=== PATIENT | female | born 1930 | race Caucasian/White ===

== ENCOUNTER 2016-10-16 17:10 | Inpatient (IN) | payer MEDICARE, MEDICAID ==
[~2016-10-16] VITALS: Ht 170.2 cm; Wt 108.0 kg
[~2016-10-16 17:10] MED LIST: KETAMINE INJ 50 MG/ML VIAL IV ONE; LIDOCAINE 2% SYR 5 ML IV ONE; PROPOFOL 50ML VIAL IV ONE
[2016-10-16] MEDS ORDERED: SALINE FLUSH 10 ML FLUSH PRN (20:15)
[2016-10-16] MEDS ORDERED: DEXTROSE 50% SYRINGE 50 ML IV PRN (20:15)
[2016-10-16] MEDS ORDERED: PHARMACY TO DOSE LEVAQUIN IV SCH (20:15)
[2016-10-16] MEDS ORDERED: GLUCAGON 1 MG VIAL IM PRN (20:15)
[2016-10-16] MEDS ORDERED: ONDANSETRON 4 MG VIAL IV PRN (20:15)
[2016-10-16] MEDS ORDERED: PHARMACY TO DOSE ZOSYN IV SCH (20:25)
[2016-10-16 21:23] VITALS: BP_SYST 153; RESP 18; TEMP 98.6
[2016-10-16 21:25] VITALS: Ht 170.2 cm; Wt 108.0 kg
[2016-10-16] MEDS: SODIUM CHLORIDE 0.9% 1,000 ML IV SCH (22:05)
[2016-10-16] MEDS: SALINE FLUSH 10 ML FLUSH SCH (22:06)
[2016-10-16 23:15] VITALS: BP_SYST 139; RESP 18; TEMP 98.2
[2016-10-16] MEDS: PIPERACIL/TAZO 2.25GM/50ML 50 ML IV SCH (23:35)
[2016-10-17] VITALS (15 sets, daily range): BP systolic 110–163; RESP 16–20; TEMP 96.6–98.3
[2016-10-17] MEDS: SODIUM CHLORIDE 0.9% FLUSH BAG 500 ML IV SCH ×2 (05:23→23:45)
[2016-10-17] MEDS: LEVOTHYROXINE 0.025 MG TAB PO SCH (06:08)
[2016-10-17] MEDS: PIPERACIL/TAZO 2.25GM/50ML 50 ML IV SCH ×3 (06:09→17:56)
[2016-10-17] MEDS: SODIUM CHLORIDE 0.9% 1,000 ML IV SCH ×2 (06:09→19:58)
[2016-10-17] MEDS ORDERED: [UNRECOGNIZED DRUG - REMARK] XX SCH (08:00)
[2016-10-17] MEDS: SALINE FLUSH 10 ML FLUSH SCH ×2 (08:00→19:58)
[2016-10-17] MEDS: BUPROPION SR 100 MG TAB PO SCH (09:00)
[2016-10-17] MEDS: DULoxetine 30 MG CAP PO SCH (09:00)
[2016-10-17] MEDS ORDERED: LACT RINGERS 1,000 ML IV SCH (11:45)
[2016-10-18 00:17] VITALS: BP_SYST 105; RESP 18; TEMP 97.6
[2016-10-18] MEDS: PIPERACIL/TAZO 2.25GM/50ML 50 ML IV SCH ×4 (00:20→16:39)
[2016-10-18 04:11] VITALS: BP_SYST 116; RESP 18; TEMP 97.4
[2016-10-18] MEDS: LEVOTHYROXINE 0.025 MG TAB PO SCH (06:10)
[2016-10-18] MEDS: SODIUM CHLORIDE 0.9% 1,000 ML IV SCH ×3 (06:11→22:34)
[2016-10-18 07:11] VITALS: BP_SYST 120; RESP 18; TEMP 97.9
[2016-10-18] MEDS: BUPROPION SR 100 MG TAB PO SCH (09:44)
[2016-10-18] MEDS: DULoxetine 30 MG CAP PO SCH (09:45)
[2016-10-18] MEDS: SALINE FLUSH 10 ML FLUSH SCH ×2 (09:45→20:00)
[2016-10-18 10:55] VITALS: BP_SYST 149; RESP 18; TEMP 97.2
[2016-10-18] MEDS ORDERED: PHARMACY TO DOSE VANCOMYCIN IV SCH (13:05)
[2016-10-18] MEDS ORDERED: VANCOMYCIN 2,000 MG in SODIUM CHLORIDE 0.9% 500 ML IV ONE (13:15)
[2016-10-18 15:38] VITALS: BP_SYST 142; RESP 18; TEMP 97.6
[2016-10-18 20:15] VITALS: BP_SYST 120; RESP 16; TEMP 97.2
[2016-10-19] VITALS (8 sets, daily range): BP systolic 118–130; RESP 2–20; TEMP 97.1–97.4
[2016-10-19] MEDS: PIPERACIL/TAZO 2.25GM/50ML 50 ML IV SCH ×4 (00:52→16:29)
[2016-10-19] MEDS: SODIUM CHLORIDE 0.9% FLUSH BAG 500 ML IV SCH (03:33)
[2016-10-19] MEDS: LEVOTHYROXINE 0.025 MG TAB PO SCH (06:21)
[2016-10-19] MEDS ORDERED: VANCOMYCIN 1,500 MG in SODIUM CHLORIDE 0.9% 250 ML IV ONE (07:45)
[2016-10-19] MEDS: SALINE FLUSH 10 ML FLUSH SCH ×2 (08:00→22:44)
[2016-10-19] MEDS: DULoxetine 30 MG CAP PO SCH (08:06)
[2016-10-19] MEDS: BUPROPION SR 100 MG TAB PO SCH (08:07)
[2016-10-19] MEDS: SODIUM CHLORIDE 0.9% 1,000 ML IV SCH (08:11)
[2016-10-19] MEDS: OXYCODONE 5 MG TAB PO PRN (16:29)
[2016-10-19] MEDS ORDERED: HALOPERIDOL 5 MG/ML VIAL IM PRN (19:15)
[2016-10-19] MEDS: TRAZODONE 50 MG TAB PO SCH (21:00)
[2016-10-19] MEDS ORDERED: MISSING DOSE XX ONE (22:15)
[2016-10-20] MEDS: PIPERACIL/TAZO 2.25GM/50ML 50 ML IV SCH ×3 (00:26→15:47)
[2016-10-20 03:37] VITALS: BP_SYST 118; RESP 20; TEMP 97.8
[2016-10-20] MEDS: SODIUM CHLORIDE 0.9% FLUSH BAG 500 ML IV SCH ×2 (06:00→19:51)
[2016-10-20] MEDS: LEVOTHYROXINE 0.025 MG TAB PO SCH (06:37)
[2016-10-20 08:15] VITALS: BP_SYST 126; RESP 16; TEMP 97.6
[2016-10-20] MEDS: SALINE FLUSH 10 ML FLUSH SCH ×2 (08:31→21:34)
[2016-10-20] MEDS: BUPROPION SR 100 MG TAB PO SCH (08:32)
[2016-10-20] MEDS: DULoxetine 30 MG CAP PO SCH (08:32)
[2016-10-20] MEDS: [UNRECOGNIZED DRUG - OTHER] SUBQ SCH ×2 (09:25→19:50)
[2016-10-20] MEDS: INSULIN GLARGINE SUBQ SCH ×2 (09:25→19:50)
[2016-10-20] MEDS: [UNRECOGNIZED DRUG - REMARK] XX SCH ×2 (09:53→19:49)
[2016-10-20] MEDS ORDERED: VANCOMYCIN 1,500 MG in SODIUM CHLORIDE 0.9% 250 ML IV ONE (10:00)
[2016-10-20] MEDS: SODIUM CHLORIDE 0.9% 1,000 ML IV SCH ×2 (10:53→21:39)
[2016-10-20] MEDS: ACETAMINOPHEN 325 MG TAB PO SCH (15:48)
[2016-10-20 19:58] VITALS: BP_SYST 142; RESP 18; TEMP 97.4
[2016-10-20] MEDS: ATENOLOL 25 MG TAB PO SCH (21:34)
[2016-10-20] MEDS: TRAZODONE 50 MG TAB PO SCH (21:34)
[2016-10-20] MEDS: OXYCODONE 5 MG TAB PO PRN (21:36)
[2016-10-20 22:40] VITALS: BP_SYST 139; RESP 18; TEMP 98.6
[2016-10-21] MEDS: PIPERACIL/TAZO 2.25GM/50ML 50 ML IV SCH ×3 (00:29→16:58)
[2016-10-21 02:56] VITALS: BP_SYST 118; RESP 16; TEMP 97.9
[2016-10-21] MEDS: LEVOTHYROXINE 0.025 MG TAB PO SCH (05:42)
[2016-10-21] MEDS: [UNRECOGNIZED DRUG - REMARK] XX SCH ×2 (07:13→19:50)
[2016-10-21] MEDS: INSULIN GLARGINE SUBQ SCH ×2 (07:14→19:51)
[2016-10-21] MEDS: [UNRECOGNIZED DRUG - OTHER] SUBQ SCH ×2 (07:14→19:51)
[2016-10-21 07:45] VITALS: BP_SYST 126; RESP 18; TEMP 97.6
[2016-10-21] MEDS: SALINE FLUSH 10 ML FLUSH SCH ×2 (08:00→19:51)
[2016-10-21] MEDS: ACETAMINOPHEN 325 MG TAB PO SCH ×3 (08:00→16:00)
[2016-10-21] MEDS: BUPROPION SR 100 MG TAB PO SCH (08:13)
[2016-10-21] MEDS: DULoxetine 30 MG CAP PO SCH (08:13)
[2016-10-21] MEDS ORDERED: VANCOMYCIN 1,500 MG in SODIUM CHLORIDE 0.9% 250 ML IV ONE (10:00)
[2016-10-21 10:39] VITALS: BP_SYST 122; RESP 20; TEMP 97.8
[2016-10-21 15:00] VITALS: BP_SYST 134; RESP 16; TEMP 97.9
[2016-10-21] MEDS: ATENOLOL 25 MG TAB PO SCH (19:49)
[2016-10-21] MEDS: TRAZODONE 50 MG TAB PO SCH (19:50)
[2016-10-21] MEDS: SODIUM CHLORIDE 0.9% 1,000 ML IV SCH (19:52)
[2016-10-21 19:57] VITALS: BP_SYST 112; RESP 18; TEMP 98.6
[2016-10-21] MEDS ORDERED: QUEtiapine 25 MG TAB PO SCH (21:00)
[2016-10-21 23:51] VITALS: BP_SYST 130; RESP 18; TEMP 97.6
[2016-10-22] VITALS (7 sets, daily range): BP systolic 112–137; RESP 15–18; TEMP 97.8–98.6
[2016-10-22] MEDS: PIPERACIL/TAZO 2.25GM/50ML 50 ML IV SCH ×3 (00:35→16:40)
[2016-10-22] MEDS: SODIUM CHLORIDE 0.9% FLUSH BAG 500 ML IV SCH (05:47)
[2016-10-22] MEDS: LEVOTHYROXINE 0.025 MG TAB PO SCH (05:47)
[2016-10-22] MEDS: [UNRECOGNIZED DRUG - REMARK] XX SCH (08:00)
[2016-10-22] MEDS: ACETAMINOPHEN 325 MG TAB PO SCH ×3 (08:00→16:00)
[2016-10-22] MEDS: SALINE FLUSH 10 ML FLUSH SCH (08:00)
[2016-10-22] MEDS: [UNRECOGNIZED DRUG - OTHER] SUBQ SCH (09:00)
[2016-10-22] MEDS: INSULIN GLARGINE SUBQ SCH (09:00)
[2016-10-22] MEDS: BUPROPION SR 100 MG TAB PO SCH (09:10)
[2016-10-22] MEDS: DULoxetine 30 MG CAP PO SCH (09:11)
[2016-10-22] MEDS ORDERED: Furosemide 40 MG/4 ML VIAL IV ONE (12:20)
== END 2016-10-22 20:01 | DRG 445 ==
LOC: ENRESERVTM → ENRESERVDT → ER 17:10 → EMR 20:15 → ENPENDDIS 20:15 → 5THW 21:07 → UNDODISIN 10-22 18:35
PROVIDERS: ADMIT Family Medicine; ATTEND Family Medicine
PROC: 0F798DZ Dilation of Common Bile Duct with Intraluminal Device, Via Natural or Artificial Opening Endoscopic (ICD-10-PCS; 2016-10-17)
PROC: 0FC98ZZ Extirpation of Matter from Common Bile Duct, Via Natural or Artificial Opening Endoscopic (ICD-10-PCS; principal; 2016-10-17 13:20)
DX: K80.30 Calculus of bile duct with cholangitis, unspecified, without obstruction (principal); N18.4 Chronic kidney disease, stage 4 (severe); E87.2 Acidosis; G30.9 Alzheimer's disease, unspecified; F02.80 Dementia in other diseases classified elsewhere, unspecified severity, without behavioral disturbance, psychotic disturbance, mood disturbance, and anxiety; F32.9 Major depressive disorder, single episode, unspecified; E66.9 Obesity, unspecified; Z68.33 Body mass index [BMI] 33.0-33.9, adult; E03.9 Hypothyroidism, unspecified; E11.22 Type 2 diabetes mellitus with diabetic chronic kidney disease; I12.9 Hypertensive chronic kidney disease with stage 1 through stage 4 chronic kidney disease, or unspecified chronic kidney disease; Z79.4 Long term (current) use of insulin; E87.5 Hyperkalemia; K21.9 Gastro-esophageal reflux disease without esophagitis; M81.0 Age-related osteoporosis without current pathological fracture; Z86.73 Personal history of transient ischemic attack (TIA), and cerebral infarction without residual deficits; Z66 Do not resuscitate; Z79.82 Long term (current) use of aspirin
CPT/HCPCS: 36415; 74330; 76705; 80048; 80053; 80076; 80202; 80329; 81001; 82140; 82150; 82947; 83690; 85025; 85610; 85730; 86403; 87040; 87071; 87077; 87088; 87186; 94799; 96360; 99222; 99232; 99233; 99239